=== PATIENT | male | born 1960 | race Caucasian/White ===

== ENCOUNTER 2017-06-22 08:59 | Emergency (ER) | payer OTHER ==
[2017-06-22] MEDS ORDERED: ASPIRIN 81 MG CHEW TAB PO ONE ×2 (09:16→10:08)
[2017-06-22] MEDS ORDERED: ENALAPRILAT DIHYDRATE 1.25 MG/1 ML IVP ONE (09:18)
--- NOTE | 2017-06-22 09:22 | ED Physician Documentation ---
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 bp up at home and here. usually normal w/losartin 100 d Timing: gradual onset Duration: constant Last known Well Date: 06/21/17 Last Known Well Time: 21:00 Context: sleep Severity: mild, moderate Chest Pain Radiation: no radiation Chest Pain Signs/Symptoms: denies: nausea, vomiting, diaphoresis Worsened By: movement Relieved By: nothing - ROS CONST: no problems MS/LYMPH: none GI/: none EYES/ENT: none SKIN/ENDO: none - PAST HX [place] risk factors: hypertension Neuro deficit: none GI disease: none Surgeries/Procedures: other (mitral valve repair 2005) Allergies/Adverse Reactions: Allergies Allergy/AdvReac Type Severity Reaction Status Date / Time No Known Allergies Allergy Verified 06/22/17 09:58 Home Medications: Ambulatory Orders Medication Instructions Recorded Aspirin [Adult Low Dose Aspirin EC] 81 mg PO DAILY 06/22/17 Losartan Potassium [Cozaar] 100 mg PO DAILY 06/22/17 - SOCIAL HX Smoking History: non-smoker Alcohol Use: occasionally Drug Use: none - FAMILY HX Family HX: none - REVIEWED ASSESSMENTS Nursing Assessment Reviewed: Yes Vitals Reviewed: Yes ED Results Lab/Radiology - Radiology Radiology Impressions: cxr=wnl - Orders Orders: ED Orders Category Date Time Status CHEST 1 VIEW [RAD] Stat Exams 06/22/17 09:16 Ordered Aspirin Med 06/22/17 09:16 Once 324 mg PO NOW ONE Enalaprilat Dihydrate [Vasotec] Med 06/22/17 09:18 Once 2.5 mg IVP NOW ONE Oxygen Daily Oxygen 06/22/17 09:30 Ordered Chest Pain Physical Exam - EXAM General Appearance: mild distress EENT: eye inspection normal Neck: nml inspection, no carotid bruit. No: lymphadenopathy Respiratory: no resp. distress, chest non-tender, nml breath sounds CVS: reg. rate & rhythm. No: no murmur (mild systolic) Abdomen: soft Skin: warm/dry, normal color. No: cyanosis, diaphoresis, jaundice Extremities: non-tender, normal range of motion Neuro: oriented X3, CN's nml as tested, motor nml, sensation nml, mood/affect nml Discharge Clincal Impression: dizziuness vertigo, hypertension improved, A-fib Home Medications: Ambulatory Orders Aspirin [Adult Low Dose Aspirin EC] 81 mg PO DAILY 06/22/17 Losartan Potassium [Cozaar] 100 mg PO DAILY 06/22/17 Comments: bpo better pot better but some dizziness on standing-has [facility] works [facility] requests tnsf to [place]. spoke w/DR ZAMORA he will accept - tnsf via ambulance Condition: Good Disposition: [facility]F [id number] Decision to Admit: [id number] Decision Time: 11:48
[2017-06-22 10:14] LABS: BASOPHILS % 0.8 (0.0-1.5); EOSINOPHILS % 3.6 % (0.0-6.8); MEAN CORPUSCULAR HEMOGLOBIN 31.9 pg (28.0-34.0); MEAN CORPUSCULAR VOLUME 92.1 fl (80.0-100.0); MONOCYTES % 6.1 % (0.0-11.0); NEUTROPHILS # 4.4 # k/uL (1.4-7.7)
[2017-06-22 10:26] LABS: eGFR (African) > 60; eGFR (Non-African) > 60
[2017-06-22] MEDS ORDERED: DILTIAZEM HCL 25 MG/ 5ML VIAL ONE (10:34)
[2017-06-22] MEDS ORDERED: DILTIAZEM HCL 25 MG/ 5ML VIAL IVP ONE (11:03)
[2017-06-22 12:27] VITALS: BP 133/93
--- NOTE | 2017-06-22 13:12 | Diagnostic Imaging Report ---
ESSENCE PIERCE~ [facility] [id number] [address] ~ ~ ~ ~ Report Submission Date: Jun 22, 2017 9:45:44 AM CDT Patient ~ Study Name: CRUZ JEFFERY ~ Date: Jun 22, 2017 9:28:36 AM CDT ~ Modality Type: CR Gender: M ~ Description: CHEST : 58 ~ Institution: [facility] Physician: ESSENCE PIERCE ~ ~ ~ ~ Examination: Portable chest History: Chest discomfort Comparison exams: None available Findings: Single view of the chest demonstrates lordotic positioning. ~Cardiac and mediastinal silhouette appropriate for technique. Sternotomy wire. ~Lung burton without focal infiltrate. No effusion. Osseous structures are appropriate for age. Impression: No acute pulmonary process for portable technique. ~ Electronically signed on Jun 22, 2017 9:45:44 AM CDT by: Odell HARLEY
== END 2017-06-22 12:23 | disposition short-term general hospital (02) ==
LOC: ED 08:59
DX: R42 Dizziness and giddiness (principal); I10 Essential (primary) hypertension; I48.91 Unspecified atrial fibrillation
CPT/HCPCS: 71010; 80053; 82550; 84484; 85025; J3490; 96374; 99283; S1016